=== PATIENT | female | born 1985 | race Caucasian/White ===

== ENCOUNTER → 2016-09-16 14:46 | Outpatient (CLI) | payer MEDICAID ==
[~2016-09-16 14:46] MED LIST: PRENATAL COMPLE1 TAB PO
[2016-09-16 16:24] LABS: APPEARANCE CLEAR (CLEAR); BILIRUBIN NEGATIVE (NEGATIVE); COLOR YELLOW (YELLOW); GLUCOSE NEGATIVE (NEGATIVE); KETONE NEGATIVE (NEGATIVE); LEUKOCYTE ESTERASE NEGATIVE (NEGATIVE); NITRITE NEGATIVE (NEGATIVE); PROTEIN NEGATIVE (NEGATIVE); UROBILINOGEN NORMAL (NORMAL)
[2016-09-16 16:34] LABS: UDS - AMPHET NEGATIVE QUAL (NEGATIVE); UDS - BARB NEGATIVE QUAL (NEGATIVE); UDS - BENZO POSITIVE QUAL (NEGATIVE); UDS - COCAINE NEGATIVE QUAL (NEGATIVE); UDS - METH NEGATIVE QUAL (NEGATIVE); UDS - OPIATE POSITIVE QUAL (NEGATIVE); UDS - PCP NEGATIVE QUAL (NEGATIVE); UDS - THC NEGATIVE QUAL (NEGATIVE)
== END | disposition home or self-care (01) ==
LOC: D.LDO 14:46
PROVIDERS: Obstetrics & Gynecology
DX: Z34.83 Encounter for supervision of other normal pregnancy, third trimester (principal); Z3A.36 36 weeks gestation of pregnancy; R10.2 Pelvic and perineal pain; R30.9 Painful micturition, unspecified

== ENCOUNTER 2016-09-27 22:56 | Emergency (ER) | payer MEDICAID | END 2016-09-28 00:22 | disposition home or self-care (01) | LOC: D.ER 22:56 | DX: O26.893 Other specified pregnancy related conditions, third trimester (principal); R11.10 Vomiting, unspecified; R19.7 Diarrhea, unspecified; J40 Bronchitis, not specified as acute or chronic; Z3A.38 38 weeks gestation of pregnancy ==

== ENCOUNTER 2016-10-07 00:37 | Emergency (ER) | payer MEDICAID ==
[2016-10-07 02:37] LABS: BASOPHILS 0.2 % (0-2); EOSINOPHILS 3.7 % (0-7); HEMATOCRIT 27.7 % (36.0-48.0); HEMOGLOBIN 9.2 g/dL (12-16); IMMATURE GRANULOCYTES 0.4 % (0-5); LYMPHOCYTES 31.8 % (15-50); MCH 31.7 pg (26.0-34.0); MCHC 33.2 g/dL (31.0-37.0); MCV 95.5 fL (80.0-100.0); MEAN PLATELET VOLUME 9.4 fL (7.4-10.4); NEUTROPHILS 58.9 % (40-80); RDW 14.2 % (11.5-14.5); WBC 11.2 10x3/uL (4.8-10.8)
[2016-10-07 02:41] LABS: PLATELET COUNT 436 10x3/uL (130-400)
[2016-10-07 02:47] LABS: ALBUMIN 2.5 g/dL (3.4-5.0); ALKALINE PHOSPHATASE 141 U/L (46-116); ALT (SGPT) 11 U/L (10-68); CALC OSMOLALITY 274 mosm/kg (275-300); CALCIUM 8.2 mg/dL (8.5-10.1); CARBON DIOXIDE 26.7 mmol/L (21.0-32.0); CHLORIDE - SERUM 100 mmol/L (98-107); CREATININE - SERUM 0.6 mg/dL (0.6-1.3); GLUCOSE 115 mg/dL (74-106); POTASSIUM - SERUM 3.1 mmol/L (3.5-5.1); PROTEIN - SERUM 6.4 g/dL (6.4-8.2); SODIUM 138 mmol/L (136-145); UREA NITROGEN 7 mg/dL (7-18); eGFR NON AFRICAN AMERICAN > 90 mL/min (90-120)
[2016-10-07 02:56] LABS: PRO BNP 527 pg/mL (0-125)
[2016-10-07 04:08] LABS: APPEARANCE HAZY (CLEAR); BILIRUBIN NEGATIVE (NEGATIVE); COLOR YELLOW (YELLOW); GLUCOSE NEGATIVE (NEGATIVE); KETONE NEGATIVE (NEGATIVE); LEUKOCYTE ESTERASE TRACE (NEGATIVE); NITRITE NEGATIVE (NEGATIVE); PROTEIN TRACE mg/dL (NEGATIVE); SPECIFIC GRAVITY 1.015 (1.005-1.020); UROBILINOGEN NORMAL (NORMAL)
[2016-10-07 04:09] LABS: BACTERIA FEW /hpf (NONE SEEN); EPITHELIAL CELLS 0-5 /hpf (0-5); RED CELLS - URINE 0-5 /hpf (0-5); WHITE CELLS - URINE 0-5 /hpf (0-5)
== END 2016-10-07 07:00 | disposition home or self-care (01) ==
LOC: D.ER 00:37
PROVIDERS: Emergency Medicine
DX: R22.43 Localized swelling, mass and lump, lower limb, bilateral (principal)

== ENCOUNTER 2016-10-29 19:30 | Emergency (ER) | payer MEDICAID ==
[2016-10-29 20:25] LABS: BASOPHILS 0.3 % (0-2); EOSINOPHILS 5.5 % (0-7); HEMATOCRIT 32.3 % (36.0-48.0); HEMOGLOBIN 10.5 g/dL (12-16); IMMATURE GRANULOCYTES 0.1 % (0-5); LYMPHOCYTES 34.7 % (15-50); MCH 29.7 pg (26.0-34.0); MCHC 32.5 g/dL (31.0-37.0); MCV 91.5 fL (80.0-100.0); MEAN PLATELET VOLUME 9.7 fL (7.4-10.4); NEUTROPHILS 55.4 % (40-80); PLATELET COUNT 389 10x3/uL (130-400); RBC 3.53 10x6/uL (4.00-5.40); WBC 10.1 10x3/uL (4.8-10.8)
[2016-10-29 20:43] LABS: ALBUMIN 3.2 g/dL (3.4-5.0); ALKALINE PHOSPHATASE 102 U/L (46-116); ALT (SGPT) 17 U/L (10-68); BILIRUBIN - TOTAL 0.15 mg/dL (0.2-1.3); CALC OSMOLALITY 276 mosm/kg (275-300); CALCIUM 8.1 mg/dL (8.5-10.1); CARBON DIOXIDE 28.4 mmol/L (21.0-32.0); CHLORIDE - SERUM 105 mmol/L (98-107); CREATININE - SERUM 0.8 mg/dL (0.6-1.3); GLUCOSE 119 mg/dL (74-106); POTASSIUM - SERUM 3.1 mmol/L (3.5-5.1); PROTEIN - SERUM 6.5 g/dL (6.4-8.2); SODIUM 140 mmol/L (136-145); UREA NITROGEN 5 mg/dL (7-18); eGFR NON AFRICAN AMERICAN 90 mL/min (90-120)
[2016-10-29 20:47] LABS: CREATINE KINASE 40 UL (21-215)
[2016-10-29 20:50] LABS: TROPONIN-I < 0.017 ng/mL (0.000-0.060)
== END 2016-10-29 21:30 | disposition home or self-care (01) ==
LOC: D.ER 19:30
PROVIDERS: Emergency Medicine
DX: R07.9 Chest pain, unspecified (principal); E87.6 Hypokalemia; F17.200 Nicotine dependence, unspecified, uncomplicated

== ENCOUNTER 2017-01-04 12:12 | Emergency (ER) | payer MEDICAID | END 2017-01-04 14:20 | disposition home or self-care (01) | LOC: D.ER 12:12 | DX: R07.89 Other chest pain (principal); J93.9 Pneumothorax, unspecified ==

== ENCOUNTER 2017-01-10 11:13 | Emergency (ER) | payer MEDICAID ==
[2017-01-10 11:52] LABS: BASOPHILS 0.2 % (0-2); EOSINOPHILS 2.3 % (0-7); HEMATOCRIT 36.9 % (36.0-48.0); HEMOGLOBIN 11.6 g/dL (12-16); IMMATURE GRANULOCYTES 0.3 % (0-5); LYMPHOCYTES 29.5 % (15-50); MCH 27.2 pg (26.0-34.0); MCHC 31.4 g/dL (31.0-37.0); MCV 86.4 fL (80.0-100.0); MEAN PLATELET VOLUME 10.2 fL (7.4-10.4); NEUTROPHILS 60.7 % (40-80); PLATELET COUNT 372 10x3/uL (130-400); RBC 4.27 10x6/uL (4.00-5.40); RDW 15.4 % (11.5-14.5); WBC 9.7 10x3/uL (4.8-10.8)
== END 2017-01-10 12:59 | disposition home or self-care (01) ==
LOC: D.ER 11:13
PROVIDERS: Emergency Medicine
DX: R07.89 Other chest pain (principal); J93.9 Pneumothorax, unspecified

== ENCOUNTER 2017-04-06 22:05 | Emergency (ER) | payer MEDICAID | END 2017-04-07 01:13 | disposition home or self-care (01) | LOC: D.ER 22:05 | DX: S00.83XA Contusion of other part of head, initial encounter (principal); W01.0XXA Fall on same level from slipping, tripping and stumbling without subsequent striking against object, initial encounter; Y93.89 Activity, other specified; Y92.019 Unspecified place in single-family (private) house as the place of occurrence of the external cause; F17.200 Nicotine dependence, unspecified, uncomplicated ==

== ENCOUNTER 2018-03-25 17:57 | Observation (INO) | payer MEDICAID ==
[~2018-03-25] VITALS: Ht 160 cm; Wt 90.9 kg
[2018-03-25 19:52] LABS: BASOPHILS 0.1 % (0-2); EOSINOPHILS 1.2 % (0-7); HEMOGLOBIN 13.9 g/dL (12-16); IMMATURE GRANULOCYTES 0.2 % (0-5); LYMPHOCYTES 23.2 % (15-50); MCH 29.8 pg (26.0-34.0); MCHC 33.1 g/dL (31.0-37.0); MCV 90.1 fL (80.0-100.0); MEAN PLATELET VOLUME 10.6 fL (7.4-10.4); MONOCYTES 6.9 % (2-11); NEUTROPHILS 68.4 % (40-80); PLATELET COUNT 356 10x3/uL (130-400); RBC 4.66 10x6/uL (4.00-5.40); RDW 13.7 % (11.5-14.5); WBC 16.8 10x3/uL (4.8-10.8)
[2018-03-25 20:00] VITALS: BP 111/68
[2018-03-25 20:06] LABS: HCG SERUM NEGATIVE (NEGATIVE)
[2018-03-25 20:12] LABS: ALBUMIN 3.4 g/dL (3.4-5.0); ALKALINE PHOSPHATASE 108 U/L (46-116); ALT (SGPT) 23 U/L (10-68); BILIRUBIN - TOTAL 0.21 mg/dL (0.2-1.3); CALC OSMOLALITY 272 mosm/kg (275-300); CALCIUM 8.9 mg/dL (8.5-10.1); CARBON DIOXIDE 24.8 mmol/L (21.0-32.0); CHLORIDE - SERUM 102 mmol/L (98-107); CREATININE - SERUM 0.7 mg/dL (0.6-1.3); GLUCOSE 90 mg/dL (74-106); POTASSIUM - SERUM 3.9 mmol/L (3.5-5.1); PROTEIN - SERUM 8.1 g/dL (6.4-8.2); SODIUM 138 mmol/L (136-145); UREA NITROGEN 5 mg/dL (7-18); eGFR NON AFRICAN AMERICAN > 90 mL/min (90-120)
[2018-03-25 20:16] LABS: APPEARANCE SL CLDY (CLEAR); BILIRUBIN NEGATIVE (NEGATIVE); COLOR RED (YELLOW); GLUCOSE NEGATIVE (NEGATIVE); KETONE NEGATIVE (NEGATIVE); NITRITE NEGATIVE (NEGATIVE); PROTEIN TRACE mg/dL (NEGATIVE); RED CELLS - URINE 0-5 /hpf (0-5); SPECIFIC GRAVITY 1.025 (1.005-1.020); UROBILINOGEN NORMAL (NORMAL)
[2018-03-25 20:17] LABS: BACTERIA MODERATE /hpf (NONE SEEN); EPITHELIAL CELLS 0-5 /hpf (0-5)
--- NOTE | 2018-03-25 20:20 | NUR ---
PT GONE TO HAVE ULTRASOUND AT THIS TIME.
[2018-03-25 21:00] VITALS: BP 112/61
--- NOTE | 2018-03-25 21:00 | NUR ---
PT STABLE, CALL LIGHT WITHIN REACH, DENIES NEEDS, WILL CONTINUE TO MONITOR.
[2018-03-25 21:30] VITALS: BP 110/67
[2018-03-25 22:00] VITALS: BP 105/62
[2018-03-25 23:02] LABS: UDS - AMPHET NEGATIVE QUAL (NEGATIVE); UDS - BARB NEGATIVE QUAL (NEGATIVE); UDS - BENZO NEGATIVE QUAL (NEGATIVE); UDS - COCAINE NEGATIVE QUAL (NEGATIVE); UDS - OPIATE NEGATIVE QUAL (NEGATIVE); UDS - PCP NEGATIVE QUAL (NEGATIVE); UDS - THC POSITIVE QUAL (NEGATIVE)
--- NOTE | 2018-03-25 23:25 | NUR ---
SANDWICH AND DRINK PROVIDED, PER PT REQUEST. PT STABLE, CALL LIGHT WITHIN REACH . WILL CONTINUE TO MONITOR.
[2018-03-25 23:30] VITALS: BP 124/76
--- NOTE | 2018-03-25 23:30 | NUR ---
ROCEPHIN INFUSION COMPLETE AT THIS TIME.
--- NOTE | 2018-03-25 23:45 | NUR ---
PT REPORT TO STEPHANIE NURSE IN LABOR AND DELIVERY ROOM 3371. PT STABLE, AT THIS TIME. WILL CONTINUE TO MONITOR.
--- NOTE | 2018-03-26 00:10 | NUR ---
PT TO L&D UNIT AND TO ROOM 1274-A VIA WC FROM ER FOR C/O LLQ ABD PAIN WITH DX OF OVARIAN CYST, PT ASSISTED INTO GOWN AND INTO BED WITHOUT DIFFICULTY, PERIPAD PLACED FOR VAGINAL BLEEDING REPORTED ALTHOUGH PT STATES "NOT BLEEDING MUCH ANYMORE BUT I CAN WEAR A PAD I GUESS". REVIEWED PLAN OF CARE, PT STATES UNDERSTANDING.
[2018-03-26 00:17] VITALS: BP 129/67; Ht 160 cm; Wt 90.9 kg
--- NOTE | 2018-03-26 00:40 | NUR ---
ADMINISTERED NORCO 1 TAB PO WITH SIP OF WATER PER MD ORDER FOR C/O PAIN RATED 8 OF 10 ON NUMERIC PAIN SCALE, ASSESSMENT COMPLETED. 1000ML BAG OF NS HUNG AND INFUSING AT 75ML/HR VIA IVAC PUMP TO LEFT A/C, SITE BENIGN TO INSPECTION. PT TO REMAIN NPO FOR NOW, INSTRUCTED PT ON NPO STATUS, PT STATES UNDERSTANDING. PT SISTER TO ROOM. CALL LIGHT IN EASY REACH, BED IN LOW POSITION, BRAKES LOCKED, SIDE RAILS UP X2, BED IN LOW POSITION, QUESTIONS ANSWERED. CONTINUE TO MONITOR.
--- NOTE | 2018-03-26 01:26 | NUR ---
PAIN REASSESSMENT COMPLETED, PT RESTING WITH EYES CLOSED, NAD NOTED, NO PHYSICAL S/SX PAIN OBSERVED AT THIS TIME, RESP EVEN AND UNLABORED, CALL LIGHT IN EASY REACH, FAMILY PRESENT ON COUCH. CONTINUE TO MONITOR.
--- NOTE | 2018-03-26 03:32 | NUR ---
ROUNDS COMPLETED, PT RESTING WITH EYES CLOSED IN SUPINE POSITON, HOB SLIGHTLY ELEVATED, NO PHYSICAL S/SX PAIN OR DISCOMFORT NOTED AT THIS TIME, CALL LIGHT IN EASY REACH, SIDE RAILS UP X2, BED IN LOW POSITION, IV CONTINUES TO INFUSE AT 75ML/HR PER IVAC TO LEFT A/C PIV. CONTINUE TO MONITOR.
--- NOTE | 2018-03-26 05:25 | NUR ---
ROUNDS COMPLETED, PT RESTING RECUMBENT IN BED, HOB AT 20 DEGREES, RESP EVEN AND UNLABORED, EYES CLOSED, NAD NOTED. CONTINUE TO MONITOR.
--- NOTE | 2018-03-26 08:01 | NUR ---
PT CALLS OUT CEMENT [facility] HELPER LIGHT REQUESTING PAIN MED. THIS RN VERIFIES WITH DR HEWITT IF PT MAY HAVE PAIN MED WITH SIP OF WATER, SHE HAS BEEN ORDERED TO BE NPO IN CASE OF NEED FOR SURGERY. DR HEWITT GIVES VERBAL ORDER TO ADMIN PRN PAIN MED ORDERED WITH SIP OF WATER. PT ADMIN MED ORDERED, SEE EMAR FOR DOC.
[2018-03-26 08:02] VITALS: BP 108/61
--- NOTE | 2018-03-26 08:02 | NUR ---
SHIFT ASSESSMENT COMPLETE, VSS, SEE FLOWSHEET FOR DOC. PT AAOx3. PT QUESTIONING WHEN SHE CAN EAT AND WHAT PLAN FOR THE DAY IS, IF SHE WILL HAVE SURGERY AND WHEN. PT INSTRUCTED THIS WILL BE DISCUSSED WITH DR HEWITT AND UPDATED SOON POSSIBLE. SCANT TO SMALL AMT RED VAGINAL BLEEDING NOTED TO PERIPAD. PT STATES SHE JUST GOT UP TO BR AND VOIDED, DENIES HEAVY BLEEDING. NS INFUSING TO PT'S LEFT PIV ORDERED. PT C/O PAIN ACROSS ABD THAT IS STABBING, WORSE ON LEFT SIDE. PT JUST MEDICATED FOR PAIN ORDERED PRN. PT DENIES FURTHER NEEDS. SRUx2, CL IN REACH. FAMILY AT BEDSIDE. WILL UPDATE PT ON POC AVAILABLE.
--- NOTE | 2018-03-26 08:10 | NUR ---
DR HEWITT AT BEDSIDE ASSESSING PT AND DISCUSSING POC. PT OPTS TO DISCHARGE HOME WITH PAIN MEDS FOR MANAGEMENT RATHER THAN HAVING SURGERY FOR CYST. DR HEWITT GIVES VERBAL ORDER FOR REGULAR DIET AND DISCHARGE TO HOME, STATES SHE WILL WRITE PRESCRIPTIONS FOR PAIN CONTROL POST D/C TO HOME.
--- NOTE | 2018-03-26 08:10 | NUR ---
SURGERY INFORMED OF NEED TO CANCEL SURGERY PER DR HEWITT.
--- NOTE | 2018-03-26 08:50 | NUR ---
PT SITTING UP IN BED, EATING BREAKFAST. COLA PROVIDED PER REQUEST. PT INFORMED THIS RN IS WORKING ON DISCHARGE PAPERS ORDERED. PT DENIES NEEDS. SRUx2, CL IN REACH. FAMILY AT BEDSIDE.
[2018-03-26] MEDS ORDERED: IBUPROFEN800 MG PO (09:10)
[2018-03-26] MEDS ORDERED: OXYCODONE-APAP1 T10 PO (09:10)
[2018-03-26] MEDS ORDERED: KEFLEX500 MG PO (09:13)
--- NOTE | 2018-03-26 09:30 | NUR ---
DR HEWITT PHONES UNIT WITH ORDER TO CALL IN ANTIBIOTIC TO PT'S PREFERRED PHARMACY. SEE NURS MESSAGE ORDER FOR FULL DETAILS.
--- NOTE | 2018-03-26 09:55 | NUR ---
PT C/O NAUSEA AFTER TAKING PAIN MED. PT REQUESTING NAUSEA MED. PT ADMIN PRN ZOFRAN ORDERED. SEE EMAR FOR DOC.
--- NOTE | 2018-03-26 10:10 | NUR ---
PT GIVEN D/C INSTRUCTIONS WELL WRITTEN PRESCRIPTIONS FOR PAIN CONTROL POST D/C TO HOME. PT REQUESTS THAT ANTIBIOTIC ORDERED BY DR HEWITT BE CALLED TO [facility] ON [address] PT LEFT AC PIV DISCONTINUED WITHOUT INCIDENT, CATH TIP INTACT. PRESSURE HELD AND BANDAID APPLIED. PT UP TO GET DRESSED FOR D/C TO HOME, DENIES NEED FOR ASSIST. PT INSTRUCTED TO CALL WHEN HER SISTER HAS CAR PULLED UP TO FRONT ENTRANCE AND SHE WILL BE TAKEN OUT VIA W/C. UNDERSTANDING VERBALIZED.
--- NOTE | 2018-03-26 10:27 | NUR ---
PT OFF UNIT VIA W/C FOR D/C TO HOME. PRESCRIPTIONS AND INSTRUCTIONS IN HAND, PT'S SISTER TO DRIVE HER HOME.
== END 2018-03-26 10:27 | disposition home or self-care (01) ==
LOC: D.ER 17:57 → D.LD 22:45 → D.EDHOLD 22:45 → OBSVTIME 22:45 → D.LD 23:07
PROVIDERS: Emergency Medicine; ADMIT Obstetrics & Gynecology
DX: N83.209 Unspecified ovarian cyst, unspecified side (principal); F41.9 Anxiety disorder, unspecified; F32.9 Major depressive disorder, single episode, unspecified

== ENCOUNTER 2018-09-19 19:22 | Inpatient (IN) | payer MEDICAID ==
[~2018-09-19] VITALS: Ht 160 cm; Wt 90.9 kg
[~2018-09-19 19:22] MED LIST changes: +IBUPROFEN800 MG PO; +KEFLEX500 MG PO; +OXYCODONE-APAP1 T10 PO
[2018-09-19 19:59] LABS: BASOPHILS 0.1 % (0-2); EOSINOPHILS 0.1 % (0-7); HEMATOCRIT 41.1 % (36.0-48.0); HEMOGLOBIN 14.2 g/dL (12-16); IMMATURE GRANULOCYTES 0.3 % (0-5); LYMPHOCYTES 10.4 % (15-50); MCHC 34.5 g/dL (31.0-37.0); MCV 86.9 fL (80.0-100.0); MEAN PLATELET VOLUME 10.6 fL (7.4-10.4); MONOCYTES 10.7 % (2-11); NEUTROPHILS 78.4 % (40-80); RBC 4.73 10x6/uL (4.00-5.40); RDW 14.1 % (11.5-14.5); WBC 17.7 10x3/uL (4.8-10.8)
[2018-09-19 20:00] LABS: PLATELET COUNT 260 10x3/uL (130-400)
[2018-09-19 20:28] LABS: ALBUMIN 3.4 g/dL (3.4-5.0); ALKALINE PHOSPHATASE 103 U/L (46-116); ALT (SGPT) 27 U/L (10-68); AMYLASE - SERUM 33 U/L (25-115); BILIRUBIN - TOTAL 0.38 mg/dL (0.2-1.3); CALC OSMOLALITY 264 mosm/kg (275-300); CALCIUM 8.9 mg/dL (8.5-10.1); CARBON DIOXIDE 25.7 mmol/L (21.0-32.0); CHLORIDE - SERUM 96 mmol/L (98-107); CREATININE - SERUM 0.9 mg/dL (0.6-1.3); GLUCOSE 125 mg/dL (74-106); LIPASE 76 U/L (73-393); POTASSIUM - SERUM 3.6 mmol/L (3.5-5.1); PROTEIN - SERUM 8.4 g/dL (6.4-8.2); SODIUM 133 mmol/L (136-145); TROPONIN-I < 0.017 ng/mL (0.000-0.060); UREA NITROGEN 7 mg/dL (7-18); eGFR NON AFRICAN AMERICAN 77 mL/min (90-120)
--- NOTE | 2018-09-19 20:30 | NUR ---
FLU SWAB SENT TO LAB
[2018-09-19 20:56] VITALS: BP 116/63
[2018-09-19 21:03] LABS: HCG SERUM NEGATIVE (NEGATIVE)
--- NOTE | 2018-09-19 21:45 | NUR ---
PT RETURNED FROM CT. PT RESTING ON BED, PT FAMILY AT BEDSIDE.
--- NOTE | 2018-09-19 23:47 | NUR ---
ARRIVED ON FLOOR VIA WC. AMBULATED TO BED. ORIENTED TO ROOM AND CALL LIGHT. ASSESSMENT AND HISTORY PER FLOW SHEET. IV TO RIGHT FA PATENT AND INFUSING PER ORDER.
--- NOTE | 2018-09-19 23:53 | NUR ---
NS INFUSION COMPLETE PRIOR TO TAKING PT TO INPATIENT ROOM.
[2018-09-20 01:11] VITALS: BP 107/72; Ht 160 cm; Wt 90.9 kg
[2018-09-20 04:57] VITALS: BP 107/62
[2018-09-20 05:02] LABS: APPEARANCE HAZY (CLEAR); BILIRUBIN NEGATIVE (NEGATIVE); COLOR YELLOW (YELLOW); EPITHELIAL CELLS 0-5 /hpf (0-5); GLUCOSE NEGATIVE (NEGATIVE); KETONE NEGATIVE (NEGATIVE); NITRITE NEGATIVE (NEGATIVE); PROTEIN NEGATIVE (NEGATIVE); RED CELLS - URINE 25-50 /hpf (0-5); SPECIFIC GRAVITY 1.005 (1.005-1.020); UROBILINOGEN NORMAL (NORMAL)
[2018-09-20 05:03] LABS: BACTERIA FEW /hpf (NONE SEEN)
[2018-09-20 05:34] LABS: BASOPHILS 0.1 % (0-2); EOSINOPHILS 0.4 % (0-7); HEMATOCRIT 35.3 % (36.0-48.0); HEMOGLOBIN 11.7 g/dL (12-16); IMMATURE GRANULOCYTES 0.3 % (0-5); LYMPHOCYTES 12.1 % (15-50); MCH 28.8 pg (26.0-34.0); MCHC 33.1 g/dL (31.0-37.0); MCV 86.9 fL (80.0-100.0); MEAN PLATELET VOLUME 10.5 fL (7.4-10.4); MONOCYTES 11.5 % (2-11); NEUTROPHILS 75.6 % (40-80); PLATELET COUNT 226 10x3/uL (130-400); RBC 4.06 10x6/uL (4.00-5.40); RDW 13.9 % (11.5-14.5)
[2018-09-20 05:35] LABS: WBC 12.1 10x3/uL (4.8-10.8)
[2018-09-20 05:54] LABS: ALBUMIN 2.6 g/dL (3.4-5.0); ALKALINE PHOSPHATASE 82 U/L (46-116); ALT (SGPT) 28 U/L (10-68); BILIRUBIN - TOTAL 0.24 mg/dL (0.2-1.3); CARBON DIOXIDE 26.2 mmol/L (21.0-32.0); CHLORIDE - SERUM 102 mmol/L (98-107); CREATININE - SERUM 0.7 mg/dL (0.6-1.3); GLUCOSE 139 mg/dL (74-106); POTASSIUM - SERUM 3.4 mmol/L (3.5-5.1); PROTEIN - SERUM 6.8 g/dL (6.4-8.2); SODIUM 136 mmol/L (136-145); eGFR NON AFRICAN AMERICAN > 90 mL/min (90-120)
[2018-09-20 05:55] LABS: CALC OSMOLALITY 270 mosm/kg (275-300); UREA NITROGEN 5 mg/dL (7-18)
--- NOTE | 2018-09-20 06:46 | NUR ---
IV IN RIGHT FA SWOLLEN AND PAINFUL. DC'D WITH TIP INTACT. RESITED TO LEFT FA. 22 GAUGE X2 STICKS WITH GOOD BLOOD RETURN NOTED.
--- NOTE | 2018-09-20 07:40 | NUR ---
PT RESTING IN BED, EYES CLOSED. AROUSES TO VOICE. C/O PAIN, GAVE MORPHINE FOR PAIN. NO S/S OF ACUTE DISTRESS NOTED. PT ALERT AND ORIENTED. UP AD SOLIS. IV TO LEFT FOREARM, NS INFUSING @ 200ML/HR. SITE PATENT WITHOUT REDNESS OR SWELLING. POTASSIUM 3.4 THIS AM. PT DENIES ANYTHING FURTHER AT THIS TIME. CALL LIGHT IN REACH. WILL CONTINUE TO MONITOR.
[2018-09-20 08:39] VITALS: BP 101/55
[2018-09-20 13:13] VITALS: BP 112/62
[2018-09-20 16:46] VITALS: BP 111/64
--- NOTE | 2018-09-20 16:56 | NUR ---
I have reviewed this patient and I concur with the Shift Assessment completed by the Licensed Practical Nurse today this shift.
--- NOTE | 2018-09-20 18:42 | NUR ---
PT RESTING IN BED, ALERT AND ORIENTED. PT C/O HEADACHE, GAVE TYLENOL FOR HEADACHE. PT DENIES ANYTHING FURTHER AT THIS TIME. CALL LIGHT IN REACH. WILL CONTINUE TO MONITOR.
[2018-09-20 21:13] VITALS: BP 103/44
[2018-09-21 01:24] VITALS: BP 97/60
[2018-09-21 07:53] LABS: BASOPHILS 0.3 % (0-2); EOSINOPHILS 2.2 % (0-7); HEMATOCRIT 34.5 % (36.0-48.0); HEMOGLOBIN 11.1 g/dL (12-16); IMMATURE GRANULOCYTES 0.5 % (0-5); LYMPHOCYTES 24.1 % (15-50); MCH 28.7 pg (26.0-34.0); MCHC 32.2 g/dL (31.0-37.0); MEAN PLATELET VOLUME 10.8 fL (7.4-10.4); NEUTROPHILS 58.9 % (40-80); PLATELET COUNT 240 10x3/uL (130-400); RBC 3.87 10x6/uL (4.00-5.40); RDW 14.2 % (11.5-14.5)
--- NOTE | 2018-09-21 07:55 | NUR ---
PT ALERT X 4. BREATH SOUNDS CLEAR BILAT. IV TO LEFT FOREARM, PATENT, DRESSING CDI. PT REPORTING PAIN OF 7/10, WILL MONITOR. BED LOW, CALL LIGHT IN REACH. NO OTHER NEEDS AT THIS TIME.
[2018-09-21 08:00] LABS: MCV 89.1 fL (80.0-100.0); WBC 7.6 10x3/uL (4.8-10.8)
[2018-09-21 08:12] LABS: ALBUMIN 2.5 g/dL (3.4-5.0); ALKALINE PHOSPHATASE 85 U/L (46-116); BILIRUBIN - TOTAL 0.13 mg/dL (0.2-1.3); CALC OSMOLALITY 274 mosm/kg (275-300); CALCIUM 8.3 mg/dL (8.5-10.1); CARBON DIOXIDE 25.1 mmol/L (21.0-32.0); CHLORIDE - SERUM 106 mmol/L (98-107); CREATININE - SERUM 0.6 mg/dL (0.6-1.3); GLUCOSE 97 mg/dL (74-106); POTASSIUM - SERUM 3.9 mmol/L (3.5-5.1); PROTEIN - SERUM 6.4 g/dL (6.4-8.2); SODIUM 139 mmol/L (136-145); UREA NITROGEN 4 mg/dL (7-18); eGFR NON AFRICAN AMERICAN > 90 mL/min (90-120)
[2018-09-21 08:14] LABS: ALT (SGPT) 36 U/L (10-68)
[2018-09-21 09:30] VITALS: BP 105/69
--- NOTE | 2018-09-21 13:23 | NUR ---
UDS COLLECTED AND SENT TO THE LAB
[2018-09-21 13:32] VITALS: BP 113/66
[2018-09-21 13:51] LABS: UDS - AMPHET NEGATIVE QUAL (NEGATIVE); UDS - BARB NEGATIVE QUAL (NEGATIVE); UDS - BENZO NEGATIVE QUAL (NEGATIVE); UDS - COCAINE NEGATIVE QUAL (NEGATIVE); UDS - OPIATE POSITIVE QUAL (NEGATIVE); UDS - PCP NEGATIVE QUAL (NEGATIVE); UDS - THC NEGATIVE QUAL (NEGATIVE)
--- NOTE | 2018-09-21 14:47 | MORECARE ---
CASE MANAGEMENT DISCHARGE SUMMARY PATIENT: JUANJOSE VIERA UNIT: [id number] ADM DATE: 09/19/18 AGE: 33 : 89 SEX: F ROOM/BED: D.2234 AUTHOR: EULALIA RESENDIZ PHYSICIAN: REFERRING PHYSICIAN: LUNA HENSLEY MD DATE OF SERVICE: 09/21/18 Discharge Plan Patient Name: JUANJOSE VIERA [facility] [facility] 1985 Planned Disposition: Home Anticipated Discharge Date: Discharge Date: Expected LOS: Initial Reviewer: [email or web address] Initial Review Date: 09/21/2018 Generated: 09/21/18 3:46 pm DCPIA - Discharge Planning Initial Assessment Updated by [email or web address]: Sravani Montoya on 09/21/18 2:44 pm * Is the patient Alert and Oriented? Yes * How many steps to enter\exit or inside your home? 0/0 * PCP No PCP * Pharmacy [facility] on [address] * Preadmission Environment Home with Family * ADLs Independent * Equipment None * Verbal permission to speak to the caregivers and representatives has been obtained from the patient. Yes * Community resources currently utilized None * Additional services required to return to the preadmission environment? No * Can the patient safely return to the preadmission environment? Yes * Has this patient been hospitalized within the prior 30 days at any hospital? No Patient Name: JUANJOSE VIERA Page 13073 at 1447 All edits/amendments must be made on the electronic document DICTATION DATE: 09/21/18 1446 PTA: GHAZAL 09/21/18 1446 RPT#: [id number] DC DATE: STATUS: ADM IN [facility] [address] [place] [address] END OF REPORT
--- NOTE | 2018-09-21 14:53 | MORECARE ---
CASE MANAGEMENT DISCHARGE SUMMARY PATIENT: JUANJOSE VIERA UNIT: [id number] ADM DATE: 09/19/18 AGE: 33 : 89 SEX: F ROOM/BED: D.2234 AUTHOR: EULALIA RESENDIZ PHYSICIAN: REFERRING PHYSICIAN: LUNA HENSLEY MD DATE OF SERVICE: 09/21/18 Discharge Plan Patient Name: JUANJOSE VIERA Facility: [facility]:[place] : 1985 Planned Disposition: Home Anticipated Discharge Date: Discharge Date: Expected LOS: Initial Reviewer: [email or web address] Initial Review Date: 09/21/2018 Generated: 09/21/18 3:53 pm Comments DCP- Discharge Planning Updated by [email or web address]: Sravani Montoya on 09/21/18 1:[address] Patient Name: JUANJOSE VIERA Admission Status: ER Accout number: [id number] Admission Date: 09-19-2018 : 1985 Admission Diagnosis:SEPSIS, UNSPECIFIED ORGANISM Attending: LUNA HENSLEY Current LOS: 2 Anticipated DC Date: Planned Disposition: Home Primary Insurance: MEDICAID [place] Discharge Planning Comments: CM met with patient to complete initial dc planning assessment. CM educated patient on the CM role and verbal consent given by patient to complete assessment. Her sister is in the room and verbal permission given to discuss discharge planning with her sister, she also states ok to discuss her lab reports with her. Patient lives at home with her sister at [address] [place] [address] in [place] At discharge patient plans to return and feels this is a safe discharge. CM discussed availability of home health, rehab services, and medical equipment. Patient denied known discharge needs at this time. Excuse letter given per request for sister to take to court tomorrow to show that she is in the hospital and unable to come to court. CM will continue to follow and will assist as needed with dc plans/needs. Research Pharmacist: Sravani Montoya DCPIA - Discharge Planning Initial Assessment Updated by [email or web address]: Sravani Montoya on 09/21/18 2:44 pm * Is the patient Alert and Oriented? Yes * How many steps to enter\exit or inside your home? 0/0 * PCP No PCP * Pharmacy [facility] on [address] * Preadmission Environment Home with Family * ADLs Independent * Equipment None * Verbal permission to speak to the caregivers and representatives has been obtained from the patient. Yes * Community resources currently utilized None * Additional services required to return to the preadmission environment? No * Can the patient safely return to the preadmission environment? Yes * Has this patient been hospitalized within the prior 30 days at any hospital? No Last DP export: 09/21/18 1:47 pm Patient Name: JUANJOSE VIERA Page [id number] at 1453 All edits/amendments must be made on the electronic document DICTATION DATE: 09/21/181452 TREASURY DIRECTOR: GHAZAL 09/21/18 1453 RPT#: [id number] DC DATE: STATUS: ADM IN [facility] [address] [place] [address] END OF REPORT
[2018-09-21 17:19] VITALS: BP 105/64
[2018-09-21 21:47] VITALS: BP 109/71
[2018-09-22 01:23] VITALS: BP 119/71
[2018-09-22 04:53] VITALS: BP 119/81
[2018-09-22 07:44] LABS: BASOPHILS 0.2 % (0-2); EOSINOPHILS 3.8 % (0-7); HEMATOCRIT 34.6 % (36.0-48.0); HEMOGLOBIN 11.1 g/dL (12-16); IMMATURE GRANULOCYTES 0.3 % (0-5); LYMPHOCYTES 34.1 % (15-50); MCH 28.8 pg (26.0-34.0); MCHC 32.1 g/dL (31.0-37.0); MCV 89.6 fL (80.0-100.0); MEAN PLATELET VOLUME 10.7 fL (7.4-10.4); MONOCYTES 9.6 % (2-11); PLATELET COUNT 283 10x3/uL (130-400); RBC 3.86 10x6/uL (4.00-5.40); RDW 14.3 % (11.5-14.5); WBC 6.6 10x3/uL (4.8-10.8)
[2018-09-22 08:08] LABS: ALBUMIN 2.4 g/dL (3.4-5.0); ALKALINE PHOSPHATASE 91 U/L (46-116); ALT (SGPT) 34 U/L (10-68); BILIRUBIN - TOTAL 0.11 mg/dL (0.2-1.3); CALC OSMOLALITY 278 mosm/kg (275-300); CALCIUM 8.1 mg/dL (8.5-10.1); CARBON DIOXIDE 28.5 mmol/L (21.0-32.0); CHLORIDE - SERUM 106 mmol/L (98-107); CREATININE - SERUM 0.7 mg/dL (0.6-1.3); GLUCOSE 92 mg/dL (74-106); POTASSIUM - SERUM 4.1 mmol/L (3.5-5.1); PROTEIN - SERUM 6.2 g/dL (6.4-8.2); SODIUM 141 mmol/L (136-145); UREA NITROGEN 8 mg/dL (7-18); eGFR NON AFRICAN AMERICAN > 90 mL/min (90-120)
[2018-09-22 08:39] VITALS: BP 111/61
[2018-09-22 13:13] VITALS: BP 109/66
[2018-09-22 17:36] VITALS: BP 124/76
--- NOTE | 2018-09-22 18:00 | NUR ---
I have reviewed this patient and I concur with the Shift Assessment completed by the Licensed Practical Nurse today this shift.
[2018-09-22 20:50] VITALS: BP 128/82
[2018-09-23 00:50] VITALS: BP 134/84
[2018-09-23 04:47] VITALS: BP 120/70
[2018-09-23 06:32] LABS: BASOPHILS 0.3 % (0-2); EOSINOPHILS 3.6 % (0-7); HEMATOCRIT 35.5 % (36.0-48.0); HEMOGLOBIN 11.5 g/dL (12-16); IMMATURE GRANULOCYTES 0.1 % (0-5); LYMPHOCYTES 37.1 % (15-50); MCH 28.9 pg (26.0-34.0); MCHC 32.4 g/dL (31.0-37.0); MCV 89.2 fL (80.0-100.0); MEAN PLATELET VOLUME 10.9 fL (7.4-10.4); MONOCYTES 8.5 % (2-11); NEUTROPHILS 50.4 % (40-80); PLATELET COUNT 310 10x3/uL (130-400); RBC 3.98 10x6/uL (4.00-5.40); RDW 13.9 % (11.5-14.5); WBC 6.7 10x3/uL (4.8-10.8)
[2018-09-23 06:51] LABS: ALBUMIN 2.6 g/dL (3.4-5.0); ALKALINE PHOSPHATASE 98 U/L (46-116); ALT (SGPT) 33 U/L (10-68); BILIRUBIN - TOTAL 0.17 mg/dL (0.2-1.3); CALC OSMOLALITY 274 mosm/kg (275-300); CALCIUM 8.3 mg/dL (8.5-10.1); CARBON DIOXIDE 28.3 mmol/L (21.0-32.0); CHLORIDE - SERUM 103 mmol/L (98-107); CREATININE - SERUM 0.8 mg/dL (0.6-1.3); GLUCOSE 103 mg/dL (74-106); POTASSIUM - SERUM 3.7 mmol/L (3.5-5.1); PROTEIN - SERUM 6.5 g/dL (6.4-8.2); SODIUM 139 mmol/L (136-145); UREA NITROGEN 5 mg/dL (7-18); eGFR NON AFRICAN AMERICAN 89 mL/min (90-120)
--- NOTE | 2018-09-23 07:15 | NUR ---
REC'D IN BED WITH EYES CLOSED EASILY TO AROUSED WHEN NAME IS CALLED. RESP EVEN AND UNLABORED WITH NO DISTRESS NOTED. CAN EXPRESS NEEDS AND WANTS WITH NONE NOTED OR VOICED. FAMILY AT BEDSIDE. C/L IN REACH AT BEDSIDE.
[2018-09-23 09:48] VITALS: BP 98/57
[2018-09-23] MEDS ORDERED: FLORAJEN3 CAPS460 MG PO (09:59)
[2018-09-23] MEDS ORDERED: Nicoderm [PBKC] TRANSDERM (09:59)
[2018-09-23] MEDS ORDERED: LEVAQUIN750 MG PO ×2 (10:00→10:01)
--- NOTE | 2018-09-23 12:18 | MORECARE ---
CASE MANAGEMENT DISCHARGE SUMMARY PATIENT: JUANJOSE VIERA UNIT: [id number] ADM DATE: 09/19/18 AGE: 33 : 89 SEX: F ROOM/BED: D.2234 AUTHOR: EULALIA RESENDIZ PHYSICIAN: REFERRING PHYSICIAN: LUNA HENSLEY MD DATE OF SERVICE: 09/23/18 Discharge Plan Patient Name: JUANJOSE VIERA Facility: [facility]:[place] : 1985 Planned Disposition: Home Anticipated Discharge Date: Discharge Date: Expected LOS: Initial Reviewer: [email or web address] Initial Review Date: 09/21/2018 Generated: 09/23/18 1:18 pm Comments DCP- Discharge Planning Updated by [email or web address]: Sravani Montoya on 09/23/18 11:[address] Patient Name: JUANJOSE VIERA Encounter No: [id number] : 1985 Primary Insurance: MEDICAID [place] Anticipated DC Date: Planned Disposition: Home External Planned Provider: : DCP follow-up note: Patient and family in agreement with discharge plan. No changes to plan. Case management will follow and assist as needed. Sravani Montoya DCP- Discharge Planning Updated by [id number]: Sravani Montoya on 09/21/18 1:[address] Patient Name: JUANJOSE VIERA Admission Status: ER Accout number: [id number] Admission Date: 09-19-2018 : 1985 Admission Diagnosis:SEPSIS, UNSPECIFIED ORGANISM Attending: LUNA HENSLEY Current LOS: 2 Anticipated DC Date: Planned Disposition: Home Primary Insurance: MEDICAID [place] Discharge Planning Comments: CM met with patient to complete initial dc planning assessment. CM educated patient on the CM role and verbal consent given by patient to complete assessment. Her sister is in the room and verbal permission given to discuss discharge planning with her sister, she also states ok to discuss her lab reports with her. Patient lives at home with her sister at [address] [place] [address] in [place] At discharge patient plans to return and feels this is a safe discharge. CM discussed availability of home health, rehab services, and medical equipment. Patient denied known discharge needs at this time. Excuse letter given per request for sister to take to court tomorrow to show that she is in the hospital and unable to come to court. CM will continue to follow and will assist as needed with dc plans/needs. Shale Planer Operator: Sravani Montoya DCPIA - Discharge Planning Initial Assessment Updated by [email or web address]: Sravani Montoya on 09/21/18 2:44 pm * Is the patient Alert and Oriented? Yes * How many steps to enter\exit or inside your home? 0/0 * PCP No PCP * Pharmacy [facility] on [address] * Preadmission Environment Home with Family * ADLs Independent * Equipment None * Verbal permission to speak to the caregivers and representatives has been obtained from the patient. Yes * Community resources currently utilized None * Additional services required to return to the preadmission environment? No * Can the patient safely return to the preadmission environment? Yes * Has this patient been hospitalized within the prior 30 days at any hospital? No Last DP export: 09/21/18 1:53 pm Patient Name: JUANJOSE VIERA Page 18668 at 1218 All edits/amendments must be made on the electronic document DICTATION DATE: 09/23/181216 SCIENTIFIC ILLUSTRATOR: GHAZAL 09/23/187 RPT#: [id number] DC DATE: STATUS: ADM IN [facility] [address] [place] [address] END OF REPORT
[2018-09-23 13:19] VITALS: BP 106/76
--- NOTE | 2018-09-23 17:56 | NUR ---
DC HOME AT THIS TIME IN STABLE CONDITION. NO C/O NOTED OR VOICED. UNDERSTAND DC INSTRUCTIONS.
== END 2018-09-23 17:57 | disposition home or self-care (01) | DRG 872 ==
LOC: D.ER 19:22 → D.MS 23:02
PROVIDERS: Family Medicine; ADMIT Internal Medicine Nephrology; ATTEND Internal Medicine Nephrology
DX: A41.9 Sepsis, unspecified organism (principal); N10 Acute pyelonephritis; F17.213 Nicotine dependence, cigarettes, with withdrawal; F41.8 Other specified anxiety disorders; E86.0 Dehydration

== ENCOUNTER 2018-11-25 23:11 | Emergency (ER) | payer MEDICAID ==
[~2018-11-25] VITALS: Ht 160 cm; Wt 90.9 kg
[~2018-11-25 23:11] MED LIST changes: +FLORAJEN3 CAPS460 MG PO; +LEVAQUIN750 MG PO; +Nicoderm [PBKC] TRANSDERM
[2018-11-25 23:28] VITALS: Ht 160 cm; Wt 90.9 kg
[2018-11-26 00:11] LABS: BASOPHILS 0.3 % (0-2); EOSINOPHILS 1.9 % (0-7); HEMATOCRIT 42.1 % (36.0-48.0); IMMATURE GRANULOCYTES 0.2 % (0-5); LYMPHOCYTES 26.6 % (15-50); MCH 29.3 pg (26.0-34.0); MCHC 33.3 g/dL (31.0-37.0); MCV 88.1 fL (80.0-100.0); MEAN PLATELET VOLUME 9.8 fL (7.4-10.4); MONOCYTES 9.8 % (2-11); NEUTROPHILS 61.2 % (40-80); PLATELET COUNT 306 10x3/uL (130-400); RBC 4.78 10x6/uL (4.00-5.40); RDW 14.5 % (11.5-14.5)
[2018-11-26 00:22] LABS: ALBUMIN 3.8 g/dL (3.4-5.0); ALKALINE PHOSPHATASE 101 U/L (46-116); ALT (SGPT) 28 U/L (10-68); BILIRUBIN - TOTAL 0.18 mg/dL (0.2-1.3); CALC OSMOLALITY 272 mosm/kg (275-300); CALCIUM 8.8 mg/dL (8.5-10.1); CARBON DIOXIDE 28.2 mmol/L (21.0-32.0); CHLORIDE - SERUM 105 mmol/L (98-107); CREATININE - SERUM 0.7 mg/dL (0.6-1.3); LIPASE 118 U/L (73-393); POTASSIUM - SERUM 4.6 mmol/L (3.5-5.1); PROTEIN - SERUM 7.6 g/dL (6.4-8.2); SODIUM 139 mmol/L (136-145); UREA NITROGEN 3 mg/dL (7-18); eGFR NON AFRICAN AMERICAN > 90 mL/min (90-120)
[2018-11-26 00:22] LABS: HCG SERUM NEGATIVE (NEGATIVE)
[2018-11-26 00:28] LABS: GLUCOSE 67 mg/dL (74-106)
[2018-11-26 02:09] LABS: APPEARANCE CLEAR (CLEAR); BILIRUBIN NEGATIVE (NEGATIVE); COLOR YELLOW (YELLOW); GLUCOSE NEGATIVE (NEGATIVE); KETONE NEGATIVE (NEGATIVE); NITRITE NEGATIVE (NEGATIVE); PROTEIN NEGATIVE (NEGATIVE); SPECIFIC GRAVITY 1.005 (1.005-1.020); UROBILINOGEN NORMAL (NORMAL)
[2018-11-26 03:08] VITALS: BP 104/68
== END 2018-11-26 03:08 | disposition home or self-care (01) ==
LOC: D.ER 23:11
PROVIDERS: Family Medicine
DX: R33.9 Retention of urine, unspecified (principal)

== ENCOUNTER 2019-07-25 18:15 | Emergency (ER) | payer MEDICAID ==
[~2019-07-25] VITALS: Ht 160 cm; Wt 81.8 kg
[2019-07-25 18:25] VITALS: Ht 160 cm; Wt 81.8 kg
[2019-07-25 19:13] LABS: CALC OSMOLALITY 271 mosm/kg (275-300); CARBON DIOXIDE 28.1 mmol/L (21.0-32.0); CHLORIDE - SERUM 101 mmol/L (98-107); CREATININE - SERUM 0.8 mg/dL (0.6-1.3); GLUCOSE 94 mg/dL (74-106); SODIUM 137 mmol/L (136-145); UREA NITROGEN 8 mg/dL (7-18); eGFR NON AFRICAN AMERICAN 89 mL/min (90-120)
[2019-07-25 19:17] LABS: HEMATOCRIT 44.8 % (36.0-48.0); HEMOGLOBIN 14.2 g/dL (12-16); LYMPHOCYTES 17.7 % (15-50); MCH 27.9 pg (26.0-34.0); MCHC 31.7 g/dL (31.0-37.0); MEAN PLATELET VOLUME 10.2 fL (7.4-10.4); NEUTROPHILS 74.7 % (40-80); RBC 5.09 10x6/uL (4.00-5.40); RDW 14.1 % (11.5-14.5); WBC 11.9 10x3/uL (4.8-10.8)
[2019-07-25 19:21] LABS: PLATELET COUNT 371 10x3/uL (130-400)
[2019-07-25 19:22] LABS: HCG SERUM NEGATIVE (NEGATIVE)
[2019-07-25 19:23] LABS: BILIRUBIN NEGATIVE (NEGATIVE); GLUCOSE NEGATIVE (NEGATIVE); KETONE NEGATIVE (NEGATIVE); NITRITE NEGATIVE (NEGATIVE); UROBILINOGEN NORMAL (NORMAL)
[2019-07-25 19:24] LABS: BACTERIA MODERATE /hpf (NEGATIVE); EPITHELIAL CELLS 0-5 /hpf (0-5); RED CELLS - URINE 0-5 /hpf (0-5); WHITE CELLS - URINE 0-5 /hpf (NEGATIVE)
[2019-07-25 19:27] LABS: ALBUMIN 3.6 g/dL (3.4-5.0); ALKALINE PHOSPHATASE 103 U/L (30-120); ALT (SGPT) 18 U/L (10-68); BILIRUBIN - TOTAL 0.17 mg/dL (0.2-1.3)
[2019-07-25] MEDS ORDERED: FLAGYL500 MG PO (20:55)
[2019-07-25] MEDS ORDERED: VIBRAMYCIN 100100 MG PO (20:55)
[2019-07-25] MEDS ORDERED: HYDROCODON-ACE1 EAC2 PO (21:48)
[2019-07-25 22:04] VITALS: BP 106/61
== END 2019-07-25 22:04 | disposition home or self-care (01) ==
LOC: D.ER 18:15
PROVIDERS: Family Medicine
DX: N73.9 Female pelvic inflammatory disease, unspecified (principal); A59.01 Trichomonal vulvovaginitis; D23.9 Other benign neoplasm of skin, unspecified; I10 Essential (primary) hypertension; J45.909 Unspecified asthma, uncomplicated; Z72.0 Tobacco use; N83.8 Other noninflammatory disorders of ovary, fallopian tube and broad ligament

== ENCOUNTER 2019-08-26 16:23 | Emergency (ER) | payer MEDICAID ==
[~2019-08-26] VITALS: Ht 160 cm; Wt 90.9 kg
[~2019-08-26 16:23] MED LIST changes: +FLAGYL500 MG PO; +HYDROCODON-ACE1 EAC2 PO; +VIBRAMYCIN 100100 MG PO
[2019-08-26 16:27] VITALS: Ht 160 cm; Wt 90.9 kg
[2019-08-26 17:21] LABS: BASOPHILS 0.2 % (0-2); EOSINOPHILS 1.2 % (0-7); HEMATOCRIT 42.4 % (36.0-48.0); HEMOGLOBIN 13.3 g/dL (12-16); IMMATURE GRANULOCYTES 0.2 % (0-5); LYMPHOCYTES 21.6 % (15-50); MCH 28.1 pg (26.0-34.0); MCHC 31.4 g/dL (31.0-37.0); MCV 89.6 fL (80.0-100.0); MEAN PLATELET VOLUME 10.2 fL (7.4-10.4); MONOCYTES 7.6 % (2-11); NEUTROPHILS 69.2 % (40-80); PLATELET COUNT 324 10x3/uL (130-400); RBC 4.73 10x6/uL (4.00-5.40); RDW 13.6 % (11.5-14.5); WBC 9.6 10x3/uL (4.8-10.8)
[2019-08-26 17:31] LABS: CALC OSMOLALITY 274 mosm/kg (275-300); CALCIUM 8.6 mg/dL (8.5-10.1); CARBON DIOXIDE 30.1 mmol/L (21.0-32.0); CHLORIDE - SERUM 105 mmol/L (98-107); CREATININE - SERUM 0.9 mg/dL (0.6-1.3); GLUCOSE 80 mg/dL (74-106); POTASSIUM - SERUM 3.8 mmol/L (3.5-5.1); SODIUM 139 mmol/L (136-145); UREA NITROGEN 6 mg/dL (7-18); eGFR NON AFRICAN AMERICAN 77 mL/min (90-120)
[2019-08-26 17:33] LABS: BILIRUBIN NEGATIVE (NEGATIVE); GLUCOSE NEGATIVE (NEGATIVE); KETONE NEGATIVE (NEGATIVE); NITRITE NEGATIVE (NEGATIVE); UROBILINOGEN NORMAL (NORMAL)
[2019-08-26 17:34] LABS: BACTERIA FEW /hpf (NEGATIVE); EPITHELIAL CELLS OCC /hpf (0-5); HCG URINE NEGATIVE (NEGATIVE); RED CELLS - URINE >50 /hpf (0-5); WHITE CELLS - URINE 0-5 /hpf (NEGATIVE)
[2019-08-26 17:37] LABS: ALBUMIN 3.3 g/dL (3.4-5.0); ALKALINE PHOSPHATASE 93 U/L (30-120); ALT (SGPT) 19 U/L (10-68); AMYLASE - SERUM 53 U/L (25-115); BILIRUBIN - TOTAL 0.12 mg/dL (0.2-1.3); LIPASE 101 U/L (73-393); PROTEIN - SERUM 7.1 g/dL (6.4-8.2)
[2019-08-26 22:00] VITALS: BP 112/63
== END 2019-08-26 21:55 | disposition home or self-care (01) ==
LOC: D.ER 16:23
PROVIDERS: Family Medicine
DX: N93.8 Other specified abnormal uterine and vaginal bleeding (principal); N83.202 Unspecified ovarian cyst, left side; I10 Essential (primary) hypertension; J45.909 Unspecified asthma, uncomplicated; Z72.0 Tobacco use; R42 Dizziness and giddiness; R53.1 Weakness; R10.30 Lower abdominal pain, unspecified; M54.9 Dorsalgia, unspecified

== ENCOUNTER 2019-10-31 14:50 | Inpatient (IN) | payer MEDICAID ==
[~2019-10-31] VITALS: Ht 160 cm; Wt 109.3 kg
--- NOTE | ~2019-10-31 | OP ---
PATIENT NAME: JUANJOSE VIERA MEDICAL RECORD: [id number] :[birth year] LOCATION:[facility] ADMISSION DATE:11/18/19 SURGEON: RASHID STRATTON MD DATE OF OPERATION: 11/18/2019 PREOPERATIVE DIAGNOSES: 1. Pelvic pain. 2. Suspected adhesive disease. 3. Dyspareunia. 4. Menorrhagia. POSTOPERATIVE DIAGNOSES: 1. Pelvic pain. 2. Suspected adhesive disease. 3. Dyspareunia. 4. Menorrhagia. 5. 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 PROCEDURE: Supracervical hysterectomy, lysis of adhesions and bilateral salpingectomy. SURGEON: Rashid Stratton MD ANESTHESIA: General endotracheal. INTRAVENOUS FLUIDS: Per anesthesia record. ESTIMATED BLOOD LOSS: 300 cc. FINDINGS: Extensive adhesive disease involving the uterus and anterior abdominal wall as well as extensive adhesive disease involving the cervix and bladder, normal appearing adnexa bilaterally. COMPLICATIONS: None apparent. ESTIMATED BLOOD LOSS: Approximately 300 cc. DESCRIPTION OF PROCEDURE: The patient was taken to the operating room where general anesthesia was achieved without difficulty. The patient was then prepped and draped in normal sterile fashion in the dorsal supine position. SCDs were on and functioning normally. A Venegas catheter had been placed and was draining freely and prep has been performed. At this point, a repeat Pfannenstiel skin incision was made and extended downward to the underlying subcutaneous fat to level of the fascia. The fascia was then excised in the midline and carefully dissected laterally using the Wylie scissors. The superior and inferior aspect of the fascial incision were grasped with Elaine clamps times 2, tented upward, and sharply dissected from the underlying rectus muscle using the Wylie scissors and the Bovie cautery. The rectus muscles were then bluntly in the midline and the peritoneum was entered at the superior aspect of the incision using the Metzenbaum scissors. Upon entry into the abdomen, the uterus was found to be densely adherent to the anterior abdominal wall. Careful dissection of the anterior peritoneum was performed until the fundus of the uterus was visualized. The anatomy was defined and the Bovie cautery and Metzenbaum scissors were then used to excise the anterior fundus from the overlying rectus muscle. Careful dissection was performed until the OPERATIVE REPORT [id number] JUANJOSE VIERA bladder could be identified as well as the bilateral adnexa. Dense adhesions between the bladder, abdominal wall, and cervix were then carefully dissected and the uterine fundus was free, it was grasped on its bilateral cornua using Elaine clamps. The round ligaments were identified, clamped times 2 with Elaine clamps. This was cut and suture ligated with 0 Vicryl bilaterally. A bladder flap was created bilaterally for exposure to the uterine vessels. The bladder dissection was not fully taken across the lower uterine segment due to dense adhesion. Once the uterine vessels were identified. The proximal fallopian tubes and uteroovarian ligaments were clamped with straight Hayder clamps times 2. These were cut and then suture ligated. The uterine arteries were then skeletonized bilaterally and clamped with a curved Hayder clamps. These were then cut and suture ligated with good hemostasis noted. Attention was then turned to the bladder where dense adhesions were very carefully dissected from the lower uterine segment and superior cervix. At the level of approximately the uterosacral ligaments, dissection of the bladder was ceased due to dense adhesions and fear of creating a cystotomy. Straight Hayder clamps were placed across the cardinal ligaments superior to the dissection of the bladder and the cervix was amputated using the Prashanth scissors. At this point, the cervical canal was cauterized using the Bovie cautery and the cervical stump was oversewn using 0 Vicryl suture in a [id number] fashion. Attention was then turned to the bilateral adnexa where the fallopian tubes were dissected away from the adhesions on the ovary at the fimbriated ends. The mesosalpinx was identified and then clamped with curved Hayder clamps. The fallopian tubes were then excised using the Metzenbaum scissors. The mesosalpinx clamp was then oversewn times 2 with 2-0 Vicryl with good hemostasis noted. The pelvis was thoroughly irrigated. Counts were correct times 2. The cervical stump was found to be hemostatic as well as the rest of the lateral pedicle. At this point, counts were correct times 2 for needles, sponges, and instruments and the fascia was repaired with 0 loop PDS times 1 and the skin repaired with lory. The patient tolerated the procedure well, transferred to postanesthesia recovery stable without incident. TRANSINT:[id number] Voice Confirmation ID: [id number] DOCUMENT ID: [id number] RASHID STRATTON MD CC: [id number] DICTATION DATE: 11/28/1919 INSPECTOR SCREEN PRINTING: 11/28/19 0934 DIS IN 11/20/19 [facility] [address] [facility]
[2019-11-16] MEDS ORDERED: HYDROCODON-ACE1 EAC7 PO (09:18)
[2019-11-16 10:21] LABS: BASOPHILS 0.2 % (0-2); EOSINOPHILS 1.5 % (0-7); HEMATOCRIT 43.3 % (36.0-48.0); HEMOGLOBIN 13.7 g/dL (12-16); IMMATURE GRANULOCYTES 0.2 % (0-5); LYMPHOCYTES 28.7 % (15-50); MCH 28.1 pg (26.0-34.0); MCHC 31.6 g/dL (31.0-37.0); MCV 88.9 fL (80.0-100.0); MEAN PLATELET VOLUME 10.6 fL (7.4-10.4); MONOCYTES 6.7 % (2-11); NEUTROPHILS 62.7 % (40-80); PLATELET COUNT 334 10x3/uL (130-400); RBC 4.87 10x6/uL (4.00-5.40); RDW 15.4 % (11.5-14.5); WBC 10.5 10x3/uL (4.8-10.8)
[2019-11-16 10:33] LABS: ANION GAP 12.6 mmol/L (8-16); CALCIUM 8.8 mg/dL (8.5-10.1); CARBON DIOXIDE 27.3 mmol/L (21.0-32.0); POTASSIUM - SERUM 3.9 mmol/L (3.5-5.1)
[2019-11-18] VITALS (13 sets, daily range): BP systolic 101–137; BP diastolic 56–85; Ht 160 cm; Wt 109.3 kg
[2019-11-18 06:47] LABS: HCG URINE NEGATIVE (NEGATIVE)
--- NOTE | 2019-11-18 11:40 | NUR ---
PT ARRIVES TO ROOM 1257 VIA BED FROM RR. AWAKE AND VERBAL RESPONSES APPRO TO QUESTIONS. CO PAIN AND RATES PAIN 10 ON SCALE OF 0-10. NOTED SM AMT BLOOD ON UPPER THIGHTS- NO PAD PRESENT. PERINEAL AREA CLEANSED AND PAD PLACED. REQUESTING SOMETHING TO DRINK. IV RT FOREARM- 20G- UP LR -CONNECTED TO PUMP AT 125CC/HR. ABD DRESSING CD&I. SILVEIRA CATH WITH URINE -BLUE TINGED 50CC IN BAG. SCD'S CONNECTED TO SCD PUMP.
--- NOTE | 2019-11-18 11:55 | NUR ---
LAUNDRY MACHINE TENDER DILAUDID SETUP- 0.2 MG Q10MIN WITH 4MG IN 4 HOUR LOCKOUT. PT RECEIVED 0.4 MG BOLUS AT THIS TIME. PT INSTRUCTED ON USE OF LAUNDRY MACHINE TENDER. STATES UNDERSTANDING.
--- NOTE | 2019-11-18 12:14 | NUR ---
SIPS OF ICE WATER GIVEN PER REQUEST. VANDANA OTT.
--- NOTE | 2019-11-18 12:27 | NUR ---
SISTER AT SIDE. INCENTIVE JUSTIN USED.
--- NOTE | 2019-11-18 12:42 | NUR ---
INSTRUCTED ON INCENTIVE JUSTIN
--- NOTE | 2019-11-18 12:50 | NUR ---
ABD REMAINS SOFT. NO BLOOD ON NEO PAD. ABD DRESSING CD&I.
--- NOTE | 2019-11-18 13:45 | NUR ---
LEO COLEMANCIE PROVIDED PER REQUEST.
--- NOTE | 2019-11-18 14:43 | NUR ---
PT PRESSES CALL LIGHT, REQUESTS JELLO. THIS RN TO ROOM, PT PROVIDED WITH JELLO REQUESTED PER CLEAR LIQUID DIET. PT ALSO REQUESTING NICOTINE PATCH SHE TYPICALLY SMOKES MORE THAN A PACK OF CIGARETTES PER DAY. NICOTINE PATCH APPLIED TO LEFT UPPER ARM, SEE EMAR. PT DENIES FURTHER NEEDS. SRUx2, CL IN REACH.
[2019-11-18 14:55] LABS: BASOPHILS 0.1 % (0-2); EOSINOPHILS 0 % (0-7); HEMATOCRIT 38.4 % (36.0-48.0); HEMOGLOBIN 12.2 g/dL (12-16); IMMATURE GRANULOCYTES 0.3 % (0-5); LYMPHOCYTES 6.5 % (15-50); MCH 28.3 pg (26.0-34.0); MCHC 31.8 g/dL (31.0-37.0); MCV 89.1 fL (80.0-100.0); MEAN PLATELET VOLUME 9.9 fL (7.4-10.4); MONOCYTES 4.8 % (2-11); NEUTROPHILS 88.3 % (40-80); PLATELET COUNT 279 10x3/uL (130-400); RBC 4.31 10x6/uL (4.00-5.40); RDW 15.4 % (11.5-14.5)
[2019-11-18 15:18] LABS: CALCIUM 8.3 mg/dL (8.5-10.1); CARBON DIOXIDE 24.3 mmol/L (21.0-32.0); POTASSIUM - SERUM 4.3 mmol/L (3.5-5.1)
--- NOTE | 2019-11-18 16:52 | NUR ---
GOWN CHANGED- PT MOVING ABOUT IN BED. USING MANAGER LEADERSHIP DEVELOPMENT NEEDED. ABD SOFT. NEO PAD WITH SCANT DRAINAGE. CO BEING HUNGRY. VANDANA LIQUIDS WELL.
--- NOTE | 2019-11-18 17:29 | NUR ---
VANDANA CLEAR LIQ DIET. INCENTIVE JUSTIN USED.
--- NOTE | 2019-11-18 18:00 | NUR ---
VS DONE. NEO CARE DONE- POSITIONED TO RT SIDE AND PROPPED WITH PILLOWS. USING BUSINESS SOLUTIONS ANALYST NEEDED. ICE CAP REPLACED. ABD REMAINS SOFT. DRESSING CD&I.
--- NOTE | 2019-11-18 18:50 | NUR ---
REPORT TO PM SHIFT.
--- NOTE | 2019-11-18 19:20 | NUR ---
ASSESSMENT COMPLETED, SEE ASSESSMENT FLOWSHEET. PT TEACHING REGARDING DEEP BREATHING AND COUGHING, DEMONSTRATION GOOD. ALSO HEAD CHAR FILTER TANK TENDER USE INSTRUCTION FOR PAIN CONTROL, DSG TO ABD INCISION DRY AND INTACT
--- NOTE | 2019-11-18 19:55 | NUR ---
ADM TORADOL SIVP PER MD ORDERS, SEE EMAR, PT REQUESTED AND SERVED APPLE JUICE AND AMBREEN, PT DENIES FURTHER NEEDS
--- NOTE | 2019-11-18 20:32 | NUR ---
PT VISITING WITH SISTER, RATES INC PAIN 08/23, PT INST TO CONTINUE USING RELAY RECORD CLERK INST, PT PUSHES BUTTON AT THIS TIME, DENIES NEEDS
--- NOTE | 2019-11-18 20:50 | NUR ---
NEW VIAL OF DILAUDID TO OIL WELL SERVICES DISPATCHER PUMP, SEE EMAR
--- NOTE | 2019-11-18 21:48 | NUR ---
ROOM CHECK, RESTING QUIETLY IN SUPINE POSITION HOB ELEVATED 30 DEGREES, AROUSES EASILY TO NAME CALLED. STATES FEELING RELIEF FROM PAIN. NO FURTHER NEEDS VOICED
--- NOTE | 2019-11-18 22:33 | NUR ---
PT AWAKE, RATES INC PAIN 5/10, REQUESTED AND SERVED APPLE JUICE AND JELLO, SCD'S CONTINUE ON AND WORKING PROPERLY, DENIES FURTHER NEEDS
[2019-11-19 00:10] VITALS: BP 97/53
--- NOTE | 2019-11-19 00:10 | NUR ---
PT RESTING WITH EYES CLOSED, AROUSES TO SOFT VERBAL STIMULATION, VS OBTAINED, SILVEIRA CATH EMPTIED, PT INST ON AND DEMONSTRATED I.S. WITH GOOD EFFORT, PT RATES INC PAIN 5/10, PUSHES FAMILY CONSUMER SCIENTIST BUTTON AT THIS TIME, SCD'S CONTINUE ON AND WORKING PROPERLY, SILVEIRA CATH EMPTIED, PT DENIES NEEDS AT THIS TIME
--- NOTE | 2019-11-19 01:39 | NUR ---
room check, resting quietly, aroused easily to name called, denies discomfort, call light w/i reach, assisted w/ change of position to left lateral pillow to back for comfort
--- NOTE | 2019-11-19 02:13 | NUR ---
PT RESTING ON LEFT SIDE WITH EYES CLOSED, RESP QUIET, NO DISTRESS NOTED, LEFT UNDISTURBED AT THIS TIME, SCD'S CONTINUE ON AND WORKING PROPERLY
[2019-11-19 04:11] VITALS: BP 113/62
--- NOTE | 2019-11-19 04:11 | NUR ---
THIS RN AND CESILIA BRYAN, RN TO ROOM, VS OBTAINED, I&O'S COLLECTED, TORADOL ADM SIVP PER CESILIA BRYAN, RN, PT INST ON AND DEMONSTRATED I.S. WITH GOOD EFFORT, FRESH ICE PACK TO ABD, SCD'S CONTINUE ON AND WORKING PROPERLY, PT DENIES NEEDS AT THIS TIME
--- NOTE | 2019-11-19 06:34 | NUR ---
PT AWAKE, PT RATES INC PAIN 07/23, POC DISCUSSED WITH PT ABOUT AMB AND PAIN MEDICINE, PT VERBALIZES UNDERSTANDING, DENIES NEEDS AT THIS TIME
--- NOTE | 2019-11-19 06:51 | NUR ---
SHIFT REPORT TO DAY SHIFT
[2019-11-19 07:15] VITALS: BP 114/69
--- NOTE | 2019-11-19 07:15 | NUR ---
REPORT GIVEN BY JOSE SIDHU RN
[2019-11-19 07:17] LABS: BASOPHILS 0.2 % (0-2); EOSINOPHILS 1.5 % (0-7); HEMATOCRIT 34.6 % (36.0-48.0); HEMOGLOBIN 10.9 g/dL (12-16); IMMATURE GRANULOCYTES 0.3 % (0-5); LYMPHOCYTES 23.6 % (15-50); MCH 28.4 pg (26.0-34.0); MCHC 31.5 g/dL (31.0-37.0); MCV 90.1 fL (80.0-100.0); MEAN PLATELET VOLUME 10.4 fL (7.4-10.4); MONOCYTES 11.5 % (2-11); NEUTROPHILS 62.9 % (40-80); PLATELET COUNT 277 10x3/uL (130-400); RBC 3.84 10x6/uL (4.00-5.40); RDW 15.5 % (11.5-14.5); WBC 10.2 10x3/uL (4.8-10.8)
[2019-11-19 07:43] LABS: CARBON DIOXIDE 27.4 mmol/L (21.0-32.0); CHLORIDE - SERUM 105 mmol/L (98-107); POTASSIUM - SERUM 4.1 mmol/L (3.5-5.1); SODIUM 141 mmol/L (136-145)
[2019-11-19 07:51] LABS: CALC OSMOLALITY 278 mosm/kg (275-300); CREATININE - SERUM 0.7 mg/dL (0.6-1.3); GLUCOSE 95 mg/dL (74-106); UREA NITROGEN 6 mg/dL (7-18); eGFR NON AFRICAN AMERICAN > 90 mL/min (90-120)
--- NOTE | 2019-11-19 08:00 | NUR ---
CHECKED ON PT SHE IS STILL SLEEPING SHE C/O PAIN SO I SUGGESTED SHE PUSH HER HEAD OF SALES PROMOTION BUTTON SHE IS ASKING ABOUT HAVING A REGULAR DIET. DR WEINER IS MAKING ROUNDS
--- NOTE | 2019-11-19 09:30 | NUR ---
PT IS QUIET WITHOUT C/O
--- NOTE | 2019-11-19 10:30 | NUR ---
PT IS RESTING QUIETLY WITHOUT C/O
--- NOTE | 2019-11-19 11:21 | NUR ---
PT GIVEN NORCO 10 MG PO. HER IV WAS SALINE LOCKED AND HER DRUG COUNSELOR PUMP D/C'D. SILVEIRA CATHETER REMOVED WITH LIGHT GREEN URINE. THERE WAS 1000 NL OF URNINE IN THE BAG. BLOOD WAS WASHED OFF PT FROM SURGERY. PT IS ASKING WHEN LUNCH WILL BE SERVED. SHE HAS NO C/O AT THIS TIME.
[2019-11-19 12:30] VITALS: BP 101/65
--- NOTE | 2019-11-19 12:30 | NUR ---
PT IS EATING HER LUNCH NOW. SHE'S ENJOYED HER CHEESEBURGER. NO C/O
--- NOTE | 2019-11-19 13:30 | NUR ---
PT IS RESTING QUIETLY WITHOUT C/0
--- NOTE | 2019-11-19 14:30 | NUR ---
PT USING CALL LIGHT TO REQUEST ICE CREAM AND WOULD ALSO LIKE ANOTHER "NICOTINE PATCH LIKE I HAD THAT FELL OFF YESTERDAY." NOTIFIED DR WEINER, ORDERS RECEIVED TO RENEW NICOTINE PATCH ORDER; THIS RELAYED TO PT; AWAITING ON PHARMACY APPROVAL FOR DELIVERY TO PT. NOTIFIED Jet GUZMAN RN, PRIMARY CARE NURSE OF PENDING CHANGES TO [facility] AND PT NEED ONCE AVAILABLE FROM PHARMACY.
--- NOTE | 2019-11-19 15:08 | NUR ---
PT WAS DOZING WHEN I LOOKED IN HER ROOM. SHE WOKE UP WHEN SHE HEARD THE DOOR OPEN. SHE STATES SHE DOES NOT NEED TO VOID AT THIS TIME. EATING MORE ICE CREAM
--- NOTE | 2019-11-19 16:05 | NUR ---
RESTING QUIETLY WITHOUT C/O NO NEEDS PT STILL HAS NOT VOIDED SINCE SILVEIRA PULL
--- NOTE | 2019-11-19 17:21 | NUR ---
PT HAS HAD DINNER. NO C/O STILL HAS NOT VOIDED
--- NOTE | 2019-11-19 17:26 | NUR ---
pt using call light to request prn pain meds, rates low abdominal pain 9 out of 10 on numeric pain scale, reviewed plan of care and use of prn pain meds, ambulation in halls, nonpharmacological pain management, prn meds provided, pt states understanding of all information provided, pt voided 500 ml urine to specipan without difficulty, cup of ice water provided upon request, no other needs voiced at this time. reports +flatus with ambulating in room earlier today. continue to monitor.
--- NOTE | 2019-11-19 18:26 | NUR ---
ROUNDS COMPLETED, PT REQUESTS ICE CREAM; SAME PROVIDED. NAD NOTED. RELAYS STILL HAVING SOME PAIN, REVIEWED REASONABLE EXPECTATIONS, GOAL SETTING, PAIN MANAGEMENT PLAN OF CARE, UPDATED WHITEBOARD WITH NEXT AVAILABILITY OF PRN MEDS, PT STATES UNDERSTANDING OF ALL INFORMATION PROVIDED AND AGREES TO PLANOF CARE. CONTINUE TO MONITOR. NAD NOTED.
--- NOTE | 2019-11-19 19:30 | NUR ---
PT RESTING IN BED WITHOUT DISTRESS. VSS, ASSESSMENT COMPLETE. ABD SOFT NONDISTENDED BS POSITIVE, PT STATES IS PASSING FLATUS. UP VOIDING PRN, STATES DOES WANT TO SHOWER LATER WILL CALL WHEN READY.
[2019-11-19 19:35] VITALS: BP 101/56
--- NOTE | 2019-11-19 21:30 | NUR ---
PT UP TO SHOWER, BED LINENS CHANGED.
--- NOTE | 2019-11-19 23:05 | NUR ---
PT REC'D IN BED AT THIS TIME. SISTER AT THE BEDSIDE. NO DISTRESS NOTED. NO NEEDS VOICED AT THIS TIME. Ryne ALVES RN
--- NOTE | 2019-11-20 01:30 | NUR ---
NORCO 10 MG GIVEN FOR PT C/O ABD INCISIONAL PAIN, PT RESTING QUIETLY IN BED WATCHING tv ENCOURAGED PT TO REST. CALL LIGHT IN REACH SR UP X2
--- NOTE | 2019-11-20 04:53 | NUR ---
PT RESTING QUIETLY WITH EYES CLOSED, NO DISTRESS NOTED.
--- NOTE | 2019-11-20 06:05 | NUR ---
pt taken ice. PT SITTING UP IN BED EATING A REGULAR BREAKFAST BROUGHT IN BY HER SISTER. NO DISTRESS NOTED. Ryne ALVES. VONDA
[2019-11-20 08:15] VITALS: BP 101/48
--- NOTE | 2019-11-20 08:15 | NUR ---
AWAKENED WHEN OPENED DOOR. ASSESSMENT DONE. VERBAL RESPONSES APPRO TO QUESTIONS. STATES THAT IS PASSING GAS. DENIES NEEDS AT THIS TIME. EMPTIED 800CC URINE FROM CONTAINER.
--- NOTE | 2019-11-20 09:59 | NUR ---
CALLS VIA CALL LIGHT, REQUESTED 2 FAITH PUDDING AND 2 ICE CREAMS. PROVIDED PER REQUEST. PT ENCOURAGED TO AMBULATE ON UNIT OUT OF ROOM.
--- NOTE | 2019-11-20 10:49 | NUR ---
ambulates in hallways-eleuterio well. returns to room and requests pain medication -rates pain an 8 after ambulating. also requests nicotine patch.
--- NOTE | 2019-11-20 12:28 | NUR ---
ATE 100% OF LUNCH. ABD BINDER PLACED. UP AND ABOUT IN ROOM.
--- NOTE | 2019-11-20 12:45 | NUR ---
VS DONE- REQUESTING SALINE LOCK REMOVED.
--- NOTE | 2019-11-20 12:57 | NUR ---
DR SAHU HERE TO SEE PT.
[2019-11-20] MEDS ORDERED: HYDROCODON-ACE1 EA10 PO (13:33)
[2019-11-20] MEDS ORDERED: IBUPROFEN600 MG PO (13:34)
--- NOTE | 2019-11-20 14:58 | NUR ---
pt rates pain a 7 on scale 0-10. co pain in back and at incision- medication given.
--- NOTE | 2019-11-20 15:01 | NUR ---
saline lock removed- pressure held and bandaide applied. cath tip intact.
--- NOTE | 2019-11-20 15:20 | NUR ---
DISCHARGED TO HOME WITH SISTER. TO AUTO VIA W/C.
--- NOTE | 2019-11-20 15:30 | NUR ---
DISCHARGED HOME WITH SISTER- TO AUTO VIA W/C.
--- NOTE | 2019-11-20 16:16 | NUR ---
DISCHARGE INST VERBAL AND WRITTEN GIVEN. SCRIPTS X2 GIVEN- NORCO AND IBUPROFEN. PT MED REC AND DRUG DATA INFO. PT HEALTH SUMMARY GIVEN. SEE ALSO SIGNED DISCHARGE INST PAGE. PT DENIES QUESTIONS. PT UP TO DRESS FOR MERARIRGE.
== END 2019-11-20 15:30 | disposition home or self-care (01) | DRG 743 ==
LOC: D.SDCHOLD 11-18 05:40 → D.LD 11-18 05:40 → D.SDCHOLD 11-18 07:30 → D.LD 11-18 11:38
PROVIDERS: ADMIT Obstetrics & Gynecology; ATTEND Obstetrics & Gynecology
PROC: 0UB70ZZ Excision of Bilateral Fallopian Tubes, Open Approach (ICD-10-PCS; 2019-11-18)
PROC: 0TNB0ZZ Release Bladder, Open Approach (ICD-10-PCS; 2019-11-18)
PROC: 0UT90ZL Resection of Uterus, Supracervical, Open Approach (ICD-10-PCS; principal; 2019-11-18 07:30)
DX: N92.0 Excessive and frequent menstruation with regular cycle (principal); R10.2 Pelvic and perineal pain; F41.8 Other specified anxiety disorders; K21.9 Gastro-esophageal reflux disease without esophagitis; F12.90 Cannabis use, unspecified, uncomplicated; N73.6 Female pelvic peritoneal adhesions (postinfective); Z72.0 Tobacco use